=== PATIENT | male | born 1975 | race Caucasian/White ===

== ENCOUNTER → 2023-04-07 | Outpatient (CLI) | payer OTHER | END | disposition home or self-care (01) | LOC: LAB SHORT 15:18 → LAB 15:18 | DX: R31.9 Hematuria, unspecified (principal) | CPT/HCPCS: 87086 ==

== ENCOUNTER → 2023-09-17 | Outpatient (CLI) | payer OTHER | LOC: LAB 10:27 → LAB SHORT 10:27 | DX: R19.7 Diarrhea, unspecified (principal) | CPT/HCPCS: 87177; 87209 ==